=== PATIENT | male | born 1940 | race Caucasian/White ===

== ENCOUNTER 2017-12-05 07:51 | Emergency (ER) | payer OTHER ==
[~2017-12-05] VITALS: Ht 175.3 cm; Wt 102.9 kg
[~2017-12-05 07:51] MED LIST: ASPIR 8181 M1 PO; BENICAR HCT 401 EACH PO; BENICAR40 MG PO; COUMADIN,JANTOVE1 MG PO; CRANBERRY PO; CRANBERRY500 MG PO; CYANOCOBALAM1000 MCG PO; Dyazide, Maxzide 37. PO; ENDOCET 5-3251 EACH PO; FEOSOL325 MG PO; FLOMAX0.4 MG PO; Flomax PO; NEURONTIN300 MG PO; NEXIUM40 MG PO; NIASPAN,SLO-NI500 MG PO; OMEGA-31000 M1 PO; Omega III EPA + DHA PO; PERCOCET 5/31 TABLET PO; PROSCAR5 MG PO; PYRIDOXINE,VITA50 MG PO; QUESTRAN4 GM/PACKE PO; RED YEAST RICE600 M1 PO; ROPINIROLE HC0.25 MG PO; TRAZODONE HCL50 MG PO; VITAMIN B-650 MG PO; VITAMIN B12 PO; VITAMIN B6 PO; VITAMIN D-3 401 EACH PO; VITAMIN D1000 INTUN PO; VITAMIN D3 PO; Vitamin B-12 PO; WELCHOL625 MG PO
[2017-12-05] MEDS ORDERED: SINGULAIR10 MG PO (08:10)
[2017-12-05] MEDS ORDERED: SLO-NIACIN500 MG PO (08:12)
[2017-12-05] MEDS ORDERED: ASPIR 8181 M1 PO (08:12)
[2017-12-05] MEDS ORDERED: ALEVE220 M2 PO (08:15)
[2017-12-05] MEDS ORDERED: LYRICA75 MG PO (08:15)
[2017-12-05 08:27] LABS: APPEARANCE CLEAR ((CLEAR)); BILIRUBIN NEGATIVE; BLOOD NEGATIVE; COLOR YELLOW ((YELLOW)); GLUCOSE (STRIP) NEGATIVE; KETONES NEGATIVE; LEUKOCYTES NEGATIVE; NITRITE NEGATIVE; PROTEIN (STRIP) NEGATIVE; UROBILINOGEN 0.2 MG/DL (0.2-1.0)
[2017-12-05 08:40] LABS: BASOPHIL (%) 0.9 % (0-1); BASOPHIL COUNT 0.1 K/uL (0-0.1); EOSINOPHIL (%) 1.4 % (0-5); EOSINOPHIL COUNT 0.1 K/uL (0-0.3); HEMATOCRIT 44.7 % (38.0-50.0); HEMOGLOBIN 15.9 G/DL (12.5-16.6); IMMATURE GRANULOCYTE (%) 0.3 % (0.0-0.7); LYMPHOCYTE (%) 12.3 % (15-42); LYMPHOCYTE COUNT 0.9 K/uL (1.0-2.8); MCH 30.7 PG (29.0-34.0); MCHC 35.6 G/DL (30.0-36.0); MCV 86.3 FL (86-99); MONOCYTE (%) 10.8 % (3-12); MONOCYTE COUNT 0.8 K/uL (0-0.8); NEUTROPHIL (%) 74.3 % (45-76); NEUTROPHIL COUNT 5.2 K/uL (1.8-6.4); PLATELET COUNT 232 K/uL (156-360); RBC DIS.WIDTH-CV 12.9 % (11.8-14.6); RBC DIS.WIDTH-SD 40.3 % (39-53); RED BLOOD COUNT 5.18 M/uL (4.00-5.50)
[2017-12-05 09:08] LABS: ALBUMIN 4.6 G/DL (3.2-4.8); ALKALINE PHOSPHATASE 67 IU/L (3-129); ALT (GPT) 26 IU/L (3-49); AST (GOT) 21 IU/L (2-34); CHLORIDE 105 MEQ/L (99-109); CREATININE 1.1 MG/DL (0.6-1.3); GFR ESTIMATE (CALCULATED) > 59 mL/min/ (58.99-99999); GLUCOSE 115 mg/dL (70-99); POTASSIUM 3.9 MEQ/L (3.7-5.4); SODIUM 135 MEQ/L (136-147); TOTAL BILIRUBIN 1.3 MG/DL (0.0-1.0); TOTAL PROTEIN 6.5 G/DL (6.4-8.3); UREA NITROGEN (BUN) 32 mg/dL (9-23)
[2017-12-05 10:19] LABS: LIPASE 20 U/L (1.0-51.0)
[2017-12-05] MEDS ORDERED: ZOFRAN4 MG PO (11:04)
[2017-12-05] MEDS ORDERED: FLOMAX0.4 MG PO (11:04)
[2017-12-05] MEDS ORDERED: PERCOCET 5/31 TABLET PO (11:04)
[2017-12-05 11:19] VITALS: BP 131/87
== END 2017-12-05 11:20 | disposition home or self-care (01) ==
LOC: EME 07:51
PROVIDERS: Emergency Medicine
DX: N13.5 Crossing vessel and stricture of ureter without hydronephrosis (principal); I10 Essential (primary) hypertension; K21.9 Gastro-esophageal reflux disease without esophagitis; Z87.19 Personal history of other diseases of the digestive system; Z98.890 Other specified postprocedural states; Z96.659 Presence of unspecified artificial knee joint
CPT/HCPCS: 74177; 80053; 81003; 83690; 85025; 99281; 99285; J7030